=== PATIENT | female | born 1940 | race Asian ===

== ENCOUNTER → 2018-08-22 | Outpatient (CLI) | payer MEDICARE, OTHER | END | disposition home or self-care (01) | LOC: LAB SHORT 09:45 → PLD 09:45 | DX: D22.39 Melanocytic nevi of other parts of face (principal) | CPT/HCPCS: 88305 ==

== ENCOUNTER 2020-11-18 08:52 | Day surgery (SDC) | payer MEDICARE, OTHER ==
[~2020-11-18] VITALS: Ht 157.5 cm; Wt 48.4 kg
--- NOTE | 2020-11-18 09:25 | NUR ---
11/18/20 0925 REANNA STEWARD PT TO PRE OP, IV PLACED, VSS HOWEVER PT IS HYPERTENSIVE. DENIES ANXIETY. (177/85) PT SEEN BY ANESTHESIA AND SURGEON. PLEDGET TO EYE AND NUMBING DROPS (TETRACAINE). ENGAGED IN PRE OP TEACHING AND ALL QUESTIONS ASKED AND ANSWERED.
== END 2020-11-18 10:52 | disposition home or self-care (01) ==
LOC: ORSCSDS 08:52
PROVIDERS: Ophthalmology
PROC: 08RJ3JZ Replacement of Right Lens with Synthetic Substitute, Percutaneous Approach (ICD-10-PCS; principal; 2020-11-18 10:00)
DX: H25.11 Age-related nuclear cataract, right eye (principal); I10 Essential (primary) hypertension
CPT/HCPCS: A9270; J2001; J2250; J3010; J3301; J7040; V2632